=== PATIENT | male | born 1935 | race Caucasian/White ===

== ENCOUNTER 2019-05-02 20:40 | Inpatient (IN) ==
[2019-05-02] MEDS ORDERED: ONDANSETRON HCL/PF 2 MG/ML VIAL IV ONE (21:00)
[2019-05-02] MEDS ORDERED: MORPHINE SULFATE 2 MG/ML DISP.SYRIN IV ONE ×2 (21:51→22:32)
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
[2019-05-03] MEDS ORDERED: MORPHINE SULFATE 2 MG/ML DISP.SYRIN IV ONE ×2 (00:13→01:13)
[2019-05-03 00:24] LABS: Hematocrit 35.9 % (42.0-52.0); Hemoglobin 11.7 gm/dL (13.5-18.0); Mean Cell Volume 98.6 fl (78-100); Mean Corpuscular Hemoglobin 32.1 pg (27-31); Mean Corpuscular Hgb Conc 32.6 g/dl (32-36); Mean Platelet Volume 11.4 fl (8-11.3); Neutrophil # 8.7 K/mm3 (1.3-6.0); Neutrophil % 84.2 % (42-75.0); Platelet Count 145 K/mm3 (150-450); Red Blood Count 3.64 M/mm3 (4.7-6.0); Red Cell Distribution Width 14.8 % (11.5-14.0); White Blood Count 10.3 K/mm3 (4.0-10.5)
[2019-05-03 00:38] LABS: Albumin * 3.4 gm/dl (3.4-5.0); Anion Gap 15.9 mmol/L (6.8-13.8); BUN/Creatinine Ratio 31.4 (9.0-21.6); Bilirubin, Total 0.5 mg/dL (0.0-1.1); Calcium * 8.8 mg/dL (7.9-10.9); Carbon Dioxide 24.5 mmol/L (24-32.6); Potassium 5.4 mmol/L (3.4-4.6); Total Protein 7.5 gm/dL (6.2-8.2)
[2019-05-03] MEDS ORDERED: MORPHINE SULFATE 2 MG/ML DISP.SYRIN IV PRN (01:33)
[2019-05-03] MEDS ORDERED: ONDANSETRON HCL/PF 2 MG/ML VIAL IV PRN ×2 (01:37→12:50)
[2019-05-03] MEDS ORDERED: CYCLOBENZAPRINE HCL 10 MG TABLET PO ONE (03:42)
[2019-05-03] MEDS: MORPHINE SULFATE 4 MG/ML SYRG IV PRN ×3 (05:26→19:47)
[2019-05-03] MEDS ORDERED: ceFAZolin SODIUM 1 GM in DEXTROSE 5 % IN WATER 100 ML IV ONE ×4 (07:42→08:09)
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
[2019-05-03] MEDS ORDERED: FUROSEMIDE 10 MG/ML VIAL IV ONE (08:58)
[2019-05-03] MEDS ORDERED: NON-FORMULARY 1 DOSE DOSE (Omeprazole 20 MG) PO SCH (09:00)
[2019-05-03 09:08] LABS: Urine Bilirubin Negative (NEGATIVE); Urine Blood Negative /ul (NEGATIVE); Urine Ketone Negative (NEGATIVE); Urine Nitrite Negative (NEGATIVE); Urine Protein Negative (NEGATIVE); Urine Urobilinogen Normal (NORMAL)
[2019-05-03 09:15] LABS: Urine Amorphous Sediment Few - 1+ (NONE-FEW); Urine Appearance Slightly Cloudy (CLEAR); Urine Bacteria None Seen; Urine Color Yellow; Urine RBC None Seen /hpf (0-5); Urine WBC 0-5 /hpf (0-5)
[2019-05-03 09:23] LABS: Albumin * 3.4 gm/dl (3.4-5.0); Anion Gap 16.7 mmol/L (6.8-13.8); BUN/Creatinine Ratio 32.2 (9.0-21.6); Bilirubin, Total 0.5 mg/dL (0.0-1.1); Ca. Corrected For Albumin 9.3 mg/dL (8.4-10.2); Calcium * 9.1 mg/dL (7.9-10.9); Carbon Dioxide 22.7 mmol/L (24-32.6); Potassium 5.4 mmol/L (3.4-4.6); Total Protein 7.5 gm/dL (6.2-8.2)
[2019-05-03 09:27] LABS: Hematocrit 38.6 % (42.0-52.0); Hemoglobin 12.1 gm/dL (13.5-18.0); Mean Cell Volume 100.8 fl (78-100); Mean Corpuscular Hemoglobin 31.6 pg (27-31); Mean Corpuscular Hgb Conc 31.3 g/dl (32-36); Mean Platelet Volume 11.4 fl (8-11.3); Neutrophil # 6.5 K/mm3 (1.3-6.0); Neutrophil % 67.9 % (42-75.0); Platelet Count 157 K/mm3 (150-450); Red Blood Count 3.83 M/mm3 (4.7-6.0); Red Cell Distribution Width 15.1 % (11.5-14.0); White Blood Count 9.6 K/mm3 (4.0-10.5)
--- NOTE | 2019-05-03 09:43 | HP ---
Chief Complaint - Chief Complaint Date of Service: 05/03/19 Time of Service: 08:10 Chief Complaint: Fractured R. hip History of Present Illness: Sebastian Hall is an 83 yo wh. male who was in his usual state of health when he walked to his car and had a fall sustaining a R. hip fracture. He was brought to the hospital by EMS and evaluated in the ER. Xray showed a partially displaced spiral fracture of the femoral neck area. He is admitted for preparation of an ORIF of the R. hip to be done later this morning. PMHx is significant for CAD. He had a stent placed about 1 year ago and is on asa and Clopidrogel. On exam he has bilateral rales and the cxr shows Cardiomegally, increased pulmonary vascular congestion and fluid or scarring in the R. major fissure. 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 Lab shows normal wbc, hb 11.7 grams and K+ 5.4. EGFR is 51. Mr. Hall is medically stable and approved for his planned ORIF of the R. hip fracture. Medical History (Updated 05/03/19 @ 08:09 by LUIS Chino) CAD (coronary artery disease) CHF (congestive heart failure) Depression Diabetes Hyperlipidemia Hypertension 2017 Surgical History: Surgical History (Updated 05/02/19 @ 21:32 by Sera Magallanes RN) History of heart artery stent Family History: Family History (Updated 05/03/19 @ 02:21 by Katherine Healy RN) Other No pertinent family history Social History: Patient Lives/Resources Home Utilized Occupation Retired Preferred Language Congolese Do you have any jain or No cultural preference? Smoking Status Former smoker Have you smoked in the past 12 No months Alcohol Use none Drug Use none No Social History Section defined Review Of Systems (GEN) - Review of Systems Generalized/Overall Review: Present: Weakness - Pt. is hypersomnolent from pain meds and cyclobenzaprine and is unable to provide any medial history to me. His son is here and proveded the history. EENTM: Present: No Symptoms Reported Respiratory: Present: Cough, Shortness of Breath Cardiac: Present: Other - Hx. 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 Stented 1 yr. ago. Abdominal: Present: No Symptoms Reported Genitourinary: Present: Oliguria Musculoskeletal: Present: Joint Pain - R. hip pain. R. leg is shortened and internally rotated. Neurological: Present: No Symptoms Reported Skin: Present: No Symptoms Reported Endocrine: Present: No Symptoms Reported Misc: All systems neg except as marked Immunizations: IMMUNIZATION HX Immunizations Up to Date Yes History of Influenza Vaccine Yes Hx Pneumococcal Vaccination Yes Allergies/Adverse Reactions: Allergies Allergy/AdvReac Type Severity Reaction Status Date / Time No Known Allergies Allergy Verified 05/03/19 02:21 Home Medications: HOME MEDICATIONS Aspirin 81 mg PO DAILY 05/02/19 [Last Taken Unknown] Atorvastatin Calcium 20 mg PO DAILY 05/02/19 [Last Taken Unknown] Clopidogrel Bisulfate [Plavix] 75 mg PO DAILY 05/02/19 [Last Taken Unknown] Furosemide [Lasix] 40 mg PO DAILY 05/02/19 [Last Taken Unknown] Lisinopril [Prinivil] 10 mg PO DAILY 05/02/19 [Last Taken Unknown] Omeprazole [Prilosec] 20 mg PO DAILY 05/02/19 [Last Taken Unknown] Potassium Chloride [Klor-Con M10] 10 meq PO DAILY 05/02/19 [Last Taken Unknown] Sertraline HCl [Zoloft] 50 mg PO DAILY 05/02/19 [Last Taken Unknown] metFORMIN HCL [Metformin HCl] 500 mg PO BID 05/02/19 [Last Taken Unknown] Exam - Exam Vital Signs: Vital Signs - Last Taken Temp 36.8 C 05/03/19 01:52 Pulse 72 05/03/19 01:52 Resp 20 05/03/19 01:52 BP 119/62 05/03/19 01:52 Pulse Ox 93 05/03/19 01:52 Constitutional: Present: Somnolent ENT Exam: Present: normal ENT inspection, hearing grossly normal, pharynx normal, TMs normal Eye Exam: bilateral eye: normal inspection, PERRL, EOMI Neck: Present: non-tender, limited range of motion Back Exam: Present: normal inspection, no CVA tenderness, no vertebral tenderness Breasts: Present: Exam deferred Respiratory: Present: decreased breath sounds, rales, rhonchi, other - Having apneic episodes lasting ~ 30 seconds. Cardiovascular/Chest: Present: normal peripheral pulses, regular rate, rhythm, no chest tenderness, no edema, no gallop, no murmur, JVD, extra beats Peripheral Pulses: carotid (R): 2+, carotid (L): 2+, radial (R): 2+, radial (L): 2+ Abdomen: Present: Normal bowel sounds, soft, nontender, nondistended, no rebound tenderness, no hepatospenomegaly, no masses /Rectal: Present: External genitalia normal, Other - difficulty getting in a doe catheter. Extremity: Present: normal range of motion, non-tender, normal inspection, no pedal edema, no calf tenderness Skin Exam: Present: normal color, warm/dry, no cyanosis Lymphatic: Present: no adenopathy Neurologic: Present: alberene stone setter II-XII nml as tested Appearance: Present: appropriate appearance, neat Eye contact: Present: other - sleeping. Thoughts: Present: normal thought pattern - per his son., no apparent hallucination Diagnostic Studies: Abnormal Lab Results 05/03/19 05/03/19 Range/Units 00:20 00:20 RBC 3.64 L (4.7-6.0) M/mm3 Hgb 11.7 L (13.5-18.0) gm/dL Hct 35.9 L (42.0-52.0) % MCH 32.1 H (27-31) pg RDW 14.8 H (11.5-14.0) % Plt Count 145 L (150-450) K/mm3 MPV 11.4 H (8-11.3) fl Immature Gran # (Auto) 0.04 H (0.000-0.0310) K/mm3 Neutrophils % 84.2 H (42-75.0) % Lymphocytes % 7.8 L (20-51) % Neutrophils # 8.7 H (1.3-6.0) K/mm3 Lymphocytes # 0.80 L (1.5-3.5) k/mm3 Potassium 5.4 H (3.4-4.6) mmol/L Anion Gap 15.9 H (6.8-13.8) mmol/L BUN 44 H (6-23) mg/dL Est GFR (Non-Af Amer) 51 L (60-130) mL/min BUN/Creatinine Ratio 31.4 H (9.0-21.6) Random Glucose 144 H (70-110) mg/dL Laboratory Results WBC 10.3 K/mm3 (4.0-10.5) 06/12/19 00:20 RBC 3.64 M/mm3 (4.7-6.0) L 05/03/19 00:20 Hgb 11.7 gm/dL (13.5-18.0) L 05/03/19 00:20 Hct 35.9 % (42.0-52.0) L 05/03/19 00:20 MCV 98.6 fl (78-100) 05/03/19 00:20 MCH 32.1 pg (27-31) H 05/03/19 00:20 MCHC 32.6 g/dl (32-36) 05/03/19 00:20 RDW 14.8 % (11.5-14.0) H 05/03/19 00:20 Plt Count 145 K/mm3 (150-450) L 05/03/19 00:20 MPV 11.4 fl (8-11.3) H 05/03/19 00:20 Immature Gran % (Auto) 0.40 % (0.001-0.429) 05/03/19 00:20 Immature Gran # (Auto) 0.04 K/mm3 (0.000-0.0310) H 05/03/19 00:20 84.2 % (42-75.0) H 05/03/19 00:20 7.8 % (20-51) L 05/03/19 00:20 6.6 % (0.0-9) 05/03/19 00:20 0.7 % (0.0-3.0) 05/03/19 00:20 0.3 % (0.0-1.0) 05/03/19 00:20 Nucleated RBC % 0.0 k/mm3 (0-1) 05/03/19 00:20 8.7 K/mm3 (1.3-6.0) H 05/03/19 00:20 0.80 k/mm3 (1.5-3.5) L 05/03/19 00:20 0.7 k/mm3 (0.0-1.0) 05/03/19 00:20 0.1 k/mm3 (0.0-0.7) 05/03/19 00:20 Absolute Basophils 0.0 k/mm3 (0.0-0.1) 05/03/19 00:20 Sodium 140 mmol/L (132-142) 05/03/19 00:20 141 mmol/L (130-142) 05/03/19 00:20 Potassium 5.4 mmol/L (3.4-4.6) H 05/03/19 00:20 Chloride 105 mmol/L (97-106) 05/03/19 00:20 Carbon Dioxide 24.5 mmol/L (24-32.6) 05/03/19 00:20 15.9 mmol/L (6.8-13.8) H 05/03/19 00:20 BUN 44 mg/dL (6-23) H 05/03/19 00:20 1.40 mg/dL (0.4-1.4) 05/03/19 00:20 Est GFR (Non-Af Amer) 51 mL/min (60-130) L 05/03/19 00:20 31.4 (9.0-21.6) H 05/03/19 00:20 144 mg/dL (70-110) H 05/03/19 00:20 Calcium 8.8 mg/dL (7.9-10.9) 05/03/19 00:20 Calcium Adj for Albumin 9.0 mg/dL (8.4-10.2) 05/03/19 00:20 0.5 mg/dL (0.0-1.1) 05/03/19 00:20 AST 26 U/L (0-48) 05/03/19 00:20 ALT 26 U/L (19-67) 05/03/19 00:20 100 U/L (50-170) 05/03/19 00:20 7.5 gm/dL (6.2-8.2) 05/03/19 00:20 3.4 gm/dl (3.4-5.0) 05/03/19 00:20 Assessment/Plan - Narrative Narrative: 1. diurese 2. place doe catheter 3. decrease his pain med and hold until the apnea stops. 4. Proceed with ORIF of the R. Hip 5. continuous cardiac monitoring - Assessment/Plan (1) Displaced fracture of right femoral neck Problem: Acute (2) Mild congestive heart failure Problem: Acute (3) Coronary artery disease Problem: Acute Qualifiers: Coronary Disease-Associated Artery/Lesion type: [place] artery [place] vs. transplanted heart: [place] heart Associated angina: without angina Qualified Code(s): I25.10 - Atherosclerotic heart disease of [place] coronary artery without angina pectoris
--- NOTE | 2019-05-03 10:53 | ANES ---
Anesthesia Pre Procedure Eval Vitals/Labs: Last Vital Signs Temp 36.8 C 05/03/19 01:52 Pulse 78 05/03/19 09:27 Resp 9 L 05/03/19 09:27 BP 126/61 05/03/19 09:27 Pulse Ox 95 05/03/19 09:48 HOME MEDICATIONS Aspirin 81 mg PO DAILY 05/02/19 [Last Taken Unknown] Atorvastatin Calcium 20 mg PO DAILY 05/02/19 [Last Taken Unknown] Clopidogrel Bisulfate [Plavix] 75 mg PO DAILY 05/02/19 [Last Taken Unknown] Furosemide [Lasix] 40 mg PO DAILY 05/02/19 [Last Taken Unknown] Lisinopril [Prinivil] 10 mg PO DAILY 05/02/19 [Last Taken Unknown] Omeprazole [Prilosec] 20 mg PO DAILY 05/02/19 [Last Taken Unknown] Potassium Chloride [Klor-Con M10] 10 meq PO DAILY 05/02/19 [Last Taken Unknown] Sertraline HCl [Zoloft] 50 mg PO DAILY 05/02/19 [Last Taken Unknown] metFORMIN HCL [Metformin HCl] 500 mg PO BID 05/02/19 [Last Taken Unknown] Allergies/Adverse Reactions: Allergies Allergy/AdvReac Type Severity Reaction Status Date / Time No Known Allergies Allergy Verified 05/03/19 02:21 - Planned Procedure Planned Procedure: HIP FRACTURE Medication List Reviewed:: Yes Allergies Verified: Yes Medical History (Updated 05/03/19 @ 09:43 by Phong Vergara DO) CAD (coronary artery disease) CHF (congestive heart failure) Depression Diabetes Hyperlipidemia Hypertension 2018 Surgical History (Updated 05/02/19 @ 21:32 by Sera Magallanes RN) History of heart artery stent Family History (Updated 05/03/19 @ 02:21 by Katherine Healy RN) Other No pertinent family history - Family Anesthesia History Family History:: no untoward family reactions to anesthesia, no familial bleeding tendencies, no family history of clotting disorders, no family history of premature - Airway/Neck/Teeth Teeth Condition: none Denture Type: Full upper, Full lower Neck Exam: full range of motion Mallampatti Score: 2 Thyromental (T-M) distance: > 6 cm Mandibulo Hyoid distance: > 3 cm - Respiratory Respiratory Physical: rhonchi, wheezing Smoking Status: Former smoker Sleep Apnea currently treated: No Sleep Apnea by current assessment: No - Cardiovascular Cardiac History: ME, arrhythmia, CHF - currently active, recent furosemide, cardiomyopathy, hypertension, hyperlipidemia Tolerate Activity: Poor Heart Sounds: S1 & S2, Regular, Murmur - Anesthesia Assessment and Plan ASA Class: PS, IV Anesthesia Type Plan: General LMA - Will suspend DNR during surgery
[2019-05-03] MEDS ORDERED: ceFAZolin SODIUM 1 GM VIAL IV ONE (11:30)
[2019-05-03] MEDS: NORMAL SALINE 1,000 ML IV PRN ×2 (11:30→16:46)
[2019-05-03] MEDS ORDERED: ZOLPIDEM TARTRATE 5 MG TABLET PO PRN (12:50)
[2019-05-03] MEDS ORDERED: MAGNESIUM HYDROXIDE 30 ML UDC PO PRN (12:50)
[2019-05-03] MEDS ORDERED: MAG HYDROX/ALUMINUM HYD/SIMETH 30 ML UDC PO PRN (12:50)
[2019-05-03] MEDS ORDERED: diphenhydrAMINE HCL 50 MG/ML VIAL IV PRN (12:50)
--- NOTE | 2019-05-03 12:53 | OR ---
Operative Report - Dictated Report Narrative: Date: 05/03/2019 Preoperative diagnosis: Closed right hip displaced femoral neck fracture. Postoperative diagnosis: Closed right hip displaced femoral neck fracture Procedure: Right hip cemented rosa-arthroplasty. Surgeon: Francisco Mullen M.D. Scale Attendant: Yossi Lebron PA-C (provided essential set of skilled, educated hands that assisted with transfer, positioning, prepping, draping, retraction, manipulation, placement of implants, irrigation, closure wounds, and application of dressings all of which could not be performed by the available surgical crew) Anesthesia: Spinal. Complications: None Specimens: Bone Estimated blood loss: 150 milliliters. Retained implants: Depuy [place] size 2 basic cemented femoral stem. Size 47 millimeter outside diameter self-centering bipolar head with +1.5 millimeter cobalt chromium 28 mm femoral head. Indications: Mr. Hall is a 83-year-old gentleman who fell getting into his car. This patient was evaluated on the floor and found to have sustained a displaced femoral neck fracture. The risks and benefits were discussed with the patient as well as any power of deputy county attorney or family . The patient wished to proceed with surgical treatment. The risks, benefits, and alternatives discussed were , blood clots, bleeding, infection, nerve/tendon blood vessel/ injury, malposition of components, dislocation and/or instability of joint, intraoperative fracture, postoperative limited range of motion, persistent pain, failure of components, and need for additional procedures. Patient wished to proceed. Consent was obtained after answering all questions. Procedure: After marking the correct extremity on the floor, the patient was taken to the operating room. A timeout was performed. IV antibiotics consisting of Ancef were administered prior to the procedure. A spinal anesthetic was induced by anesthesia. A Egan catheter was inserted if not are in place. The patient was then transitioned to a lateral position on a well- padded pegboard. An axillary roll was placed. The head was in neutral position. The non-operative down leg was well-padded with SCD and OPAL hose in place. The arms were supported and padded to protect from any undue pressure on the bony prominences and nerves. Well-padded anterior and posterior pelvic and chest posts were secured in order to maintain a stable position of the pelvis. This was placed so that the pelvis was perpendicular to the floor. The body was in line with the pelvis. Once it was felt that we had protected all the bony prominences and the patient was well secured with a safety belt as well, the leg was pre-scrubbed with alcohol, prepped and draped in a standard sterile fashion. A standard anterior lateral hip incision was marked out over the greater trochanter. [place] drapes were then placed. The skin incision was then made. Sharp dissection with a scalpel utilizing cautery for hemostasis was carried out down to the gluteus and iliotibial band fascia. This was split in line with the skin incision. The greater trochanter bursa was excised. The anterior and posterior margins of the abductor tendon were identified. The anterior 1/2-1/3 of the tendon was tagged and reflected off the greater trochanter leaving a sleeve of tendon for repair at the completion of the case. This exposed the underlying hip joint capsule. An inverted T-type capsulotomy was made extending this up to the brim of the acetabulum. We encountered a hematoma at this point confirming an acute fracture as well as noted displacement of the femoral neck fracture. Using Homans to assist with elevation of the soft tissues off the anterior, superior, and inferior aspects of the femoral neck, the hip was then placed in a figure 4 position for a femoral neck cleanup cut to be made. With the leg in an externally rotated and adducted position, the cutting flag was utilized in order to anthony for a standard femoral neck cut approximately a fingerbreadth above the level of the lesser trochanter. This was done while protecting the surrounding soft tissues with Homans. The femoral head was then removed and sized for guidance on the size of the bipolar head. It was noted that there was no significant loss of articular cartilage on both the femoral head and weightbearing portions of the acetabulum. We then returned the leg to the table and turned our attention to the acetabulum. While protecting the surrounding soft tissues, the labrum and remaining tissue in the fovea were excised using a scalpel and cautery. The acetabulum was then protected with a sponge while we returned our attention to the femur. With the leg in a figure 4 position utilizing Homans for soft tissue protection, a box cutting osteotome, followed by Charalberey awl, followed by serial broaches were utilized in order to prepare the femur. It was found that a size 2 broach gave good axial and rotational stability. The proximal femur was visualized to ensure that there were no signs of fracture. A series of heads were trialed. It was found that a + 1.5 mm femoral head gave good overall stability. There is minimal longitudinal instability. Hip range of motion was able to reach full extension and external rotation to greater than 75 degrees prior to impingement along the posterior acetabulum. The hip was able to be flexed to greater than 90 degrees with internal rotation greater than 60 degrees prior to anterior impingement. The limb lengths were near equal based on comparison to the contralateral side . At this point was felt this was the appropriately sized femoral components as well as neck and femoral head. The trial implants were removed. A canal cement plug was placed distally and the canal was thoroughly irrigated using pulsatile vacuum brush device. The canal was then thoroughly dried with a suction device. The cement was vacuum mixed per the flake miller helper's instructions and placed into a cement gun. Cement was then placed in the dry irrigated femur using modern cementing technique using a pressurizing device. The stem was then placed in the appropriate version compared to her [place] anatomy and held in place while the cement cured and the extruded cement was removed. Once the cement was fully cured, we ensured that the stem was stable and that there were no signs of fracture. The remaining extruded cement was removed, and the joint and the capsule were thoroughly evaluated to ensure there are no cement fragments. The final femoral bipolar head was then impacted in the place. The hip was then reduced and seated completely. The capsule was repaired with a single interrupted #1 Vicryl. The abductor tendon was repaired to the greater trochanter utilizing #5 Ethibond through drill holes. This was oversewn with #1 Vicryl. The fascia was closed with strata fix suture. The wounds were thoroughly irrigated as we closed in layers. The deep and subcutaneous fat layers were closed with 0 Vicryl. The subcutaneous tissue was closed with a running 3-0 Vicryl and the skin with sofia. All sponge, needle, blade, and instrument counts were correct prior to closing the wounds. Sterile dressings consisting of Xeroform, 4 x 4's, ABD, and tape were applied. The patient was awoken and transferred to her hospital bed and then to the postanesthesia care unit in stable condition. Postoperative condition: The plan is to return to the medical/surgical inpatient floor postoperatively. Postoperatively 24 hours of IV antibiotics, pain control, physical therapy, occupational therapy, and medical comanagement will be utilized. Patient will be weightbearing as tolerated with anterior hip precautions. Postoperative films will be obtained in the recovery room.
--- NOTE | 2019-05-03 14:32 | ANES ---
Post Anesthesia Discharge - Transfer of Care Transfer of Care handoff given to nurse: Yes - Discharge from PACU Discharge from PACU when meets criteria: Yes - Comfortable and sleepy on
[2019-05-03] MEDS: ceFAZolin SODIUM 1 GM in DEXTROSE 5 % IN WATER 50 ML IV SCH ×4 (14:44→21:20)
--- NOTE | 2019-05-03 15:33 | ANES ---
Post Anesthesia Assessment - Vital Signs Vitals: Last Vital Signs Temp 36.7 C 05/03/19 14:18 Pulse 72 05/03/19 15:03 Resp 16 05/03/19 14:33 BP 126/55 05/03/19 15:03 Pulse Ox 97 05/03/19 15:03 Airway Patency: Normal - Mental Status Level Of Consciousness: Awake, Alert, Appropriate - Pain Level Pain Score: 0 - N/V Assessment Nausea/Vomiting Presence: None Dehydration:: No
[2019-05-03] MEDS: LISINOPRIL 10 MG TABLET PO SCH (16:34)
[2019-05-03] MEDS: ASPIRIN 81 MG TAB.CHEW PO SCH (17:06)
[2019-05-03] MEDS: oxyCODONE HCL/ACETAMINOPHEN 1 TAB TABLET PO PRN ×2 (17:06→19:24)
[2019-05-03] MEDS: SERTRALINE HCL 50 MG TABLET PO SCH (17:06)
[2019-05-03] MEDS: POTASSIUM CHLORIDE 10 MEQ TABLET.SA PO SCH (17:07)
[2019-05-03] MEDS: SENNOSIDES/DOCUSATE SODIUM 1 TAB TABLET PO SCH (21:20)
[2019-05-03] MEDS: ROSUVASTATIN CALCIUM 10 MG TABLET PO SCH (21:20)
[2019-05-03] MEDS ORDERED: AMITRIPTYLINE HCL 10 MG TABLET PO ONE (21:44)
[2019-05-04] MEDS: NORMAL SALINE 1,000 ML IV PRN (01:25)
[2019-05-04] MEDS: oxyCODONE HCL/ACETAMINOPHEN 1 TAB TABLET PO PRN ×5 (02:57→20:43)
[2019-05-04] MEDS: ceFAZolin SODIUM 1 GM in DEXTROSE 5 % IN WATER 50 ML IV SCH ×2 (03:11)
[2019-05-04 06:01] LABS: Mean Cell Volume 100.6 fl (78-100); Mean Corpuscular Hemoglobin 31.4 pg (27-31); Mean Corpuscular Hgb Conc 31.3 g/dl (32-36); Mean Platelet Volume 11.4 fl (8-11.3); Platelet Count 103 K/mm3 (150-450); Red Blood Count 3.18 M/mm3 (4.7-6.0); Red Cell Distribution Width 14.7 % (11.5-14.0)
[2019-05-04 06:16] LABS: Anion Gap 14.8 mmol/L (6.8-13.8); BUN/Creatinine Ratio 31.4 (9.0-21.6); Calcium * 8.2 mg/dL (7.9-10.9); Carbon Dioxide 21.4 mmol/L (24-32.6); Estimated Creat Clear 36.9; Potassium 4.2 mmol/L (3.4-4.6)
[2019-05-04] MEDS: LISINOPRIL 10 MG TABLET PO SCH (09:17)
[2019-05-04] MEDS: SERTRALINE HCL 50 MG TABLET PO SCH (09:18)
[2019-05-04] MEDS: POTASSIUM CHLORIDE 10 MEQ TABLET.SA PO SCH (09:18)
[2019-05-04] MEDS: ASPIRIN 81 MG TAB.CHEW PO SCH (09:22)
--- NOTE | 2019-05-04 11:08 | PN ---
Subjective - Date and Time Seen Date: 05/04/19 Time: 09:30 Subjective Narrative: Postop day #1: Sebastian Hall was taken to the OR yesterday and had a right hip prosthesis placed. He tolerated procedure well. He has had some pain management issues postoperatively. I saw him last night about 9:30 PM and he was fidgety and a bit anxious. Because of the apneic episodes he had had yesterday morning with the morphine I declined to give him a benzodiazepine to help him with his nervousness. I did give him amitriptyline 10 mg but I do not know the results of that. Lab work shows hemoglobin dropped 2.1 g down to 10g this morning. The kidney function is actually improved some with an EGFR rising from 48-52. Potassium was elevated on admission at 5.4 but is normal today at 4.2. He is alert and conversant. He is hard of hearing. Case management and Mr. Hall son have discussed residential with him and placement is still pending. He is sitting up in a chair today. He will continue with physical therapy while here and then will be going to residential on Wednesday for a few weeks to rehab. Medically he seems stable. Objective - Review of Systems Generalized/Overall Review: Reports: Weakness EENTM: Reports: No Symptoms Reported Respiratory: Reports: No Symptoms Reported Cardiac: Reports: No Symptoms Reported Abdominal: Reports: No Symptoms Reported Genitourinary Symptoms: Reports: No Symptoms Reported Musculoskeletal Complaints: Reports: Joint Pain - Status post right hip prosthesis placement day #1 Neurological: Reports: No Symptoms Reported Skin: Reports: No Symptoms Reported Endocrine: Reports: No Symptoms Reported - Vitals Vitals: Last Vital Signs Temp 37.0 C 05/04/19 10:00 Pulse 63 05/04/19 10:00 Resp 18 05/04/19 10:00 BP 98/48 05/04/19 10:00 Pulse Ox 96 05/04/19 10:00 - Abnormal Lab Findings Abnormal Lab Findings: Abnormal Lab Results 05/04/19 05/04/19 Range/Units 05:56 05:56 RBC 3.18 L (4.7-6.0) M/mm3 Hgb 10.0 L (13.5-18.0) gm/dL Hct 32.0 L (42.0-52.0) % MCV 100.6 H (78-100) fl MCH 31.4 H (27-31) pg MCHC 31.3 L (32-36) g/dl RDW 14.7 H (11.5-14.0) % Plt Count 103 L (150-450) K/mm3 MPV 11.4 H (8-11.3) fl Carbon Dioxide 21.4 L (24-32.6) mmol/L Anion Gap 14.8 H (6.8-13.8) mmol/L BUN 43 H (6-23) mg/dL Est GFR (Non-Af Amer) 52 L (60-130) mL/min BUN/Creatinine Ratio 31.4 H (9.0-21.6) Random Glucose 160 H (70-110) mg/dL - EKG/Xray Findings EKG: NSR EKG read: Interp. by me XRAY: chest Interpretation: Reviewed by me - Exam Constitutional: Present: Alert, Oriented x3, Cooperative, Well developed, Well nourished, No distress ENT Exam: Present: normal ENT inspection, hearing grossly normal, pharynx normal, TMs normal Neck: Present: non-tender, limited range of motion Breasts: Present: Exam deferred Respiratory: Present: chest non-tender, lungs clear, normal breath sounds, no respiratory distress, no accessory muscle use Cardiovascular/Chest: Present: normal peripheral pulses, regular rate, rhythm, no chest tenderness, no edema, no gallop, no JVD, no murmur, no rub Abdomen: Present: Normal bowel sounds, soft, nontender, nondistended, no rebound tenderness, no hepatospenomegaly, no masses /Rectal: Present: External genitalia normal Extremity: Present: normal range of motion, non-tender, normal inspection, no pedal edema, no calf tenderness Skin Exam: Present: normal color, warm/dry, no cyanosis Lymphatic: Present: no adenopathy 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 Appearance: Present: appropriate appearance Eye contact: Present: cooperative, good eye contact Thoughts: Present: normal thought pattern, no apparent hallucination Cauti Physician Documentation - Urinary Catheter Management Urethral (Egan) Urethral Indwelling: No Date of Insertion: 05/03/19 Time of Insertion: 08:35 Date of Removal: 05/04/19 Time of Removal: 07:35 Assessment/Plan Plan Narrative: Continue physical therapy as directed by orthopedics Repeat morning lab Check serum B12 and folic acid levels since the MCV is greater than 100 - Problems/Diagnosis (1) Displaced fracture of right femoral neck Problem: Acute Narrative: Status post ORIF right hip with placement of a prosthesis (2) Mild congestive heart failure Problem: Acute (3) Coronary artery disease Problem: Acute Qualifiers: Coronary Disease-Associated Artery/Lesion type: [place] artery [place] vs. transplanted heart: [place] heart Associated angina: without angina Qualified Code(s): I25.10 - Atherosclerotic heart disease of [place] coronary artery without angina pectoris (4) Macrocytosis Problem: Chronic (5) Postoperative anemia due to acute blood loss Problem: Acute
[2019-05-04] MEDS: ENOXAPARIN SODIUM 40 MG/0.4 ML SYRG SC SCH (12:12)
--- NOTE | 2019-05-04 16:31 | PN ---
Subjective - Date and Time Seen Date: 05/04/19 Time: 08:00 Subjective Narrative: Subjective: Sitting in a chair this morning eating breakfast. Reports minimal pain. Was able to get up in the room with therapy. Pain is well-controlled. Voiding without any complications. Tolerating by mouth intake. Denies any nausea or vomiting. Denies calf pain. Slept well. Physical exam: Alert and oriented to person, place and time Right lower Extremity: Palpable dorsalis pedis pulse. Sensation grossly intact to light touch. Dressings clean and dry. Able to flex and extend ankle and toes. No excessive drainage. Calf and thigh are soft and nontender. Assessment: Postop day 1 status post right hip rosa-arthroplasty. Plan: Continue with physical and occupational therapy weightbearing as tolerated. Anterior hip precautions. Continue with anticoagulation -he will need 10 days of Lovenox followed by a regular strength aspirin daily. 24 hours postoperative prophylactic antibiotics. Pain control with goal to rely on oral medications. Continue bowel regimen. Will need 6 weeks with walker or assitive device to protect joint while ambulating during the recovery process. He is okay to transfer to a nursing facility if this is necessary at any point. He is to keep his wound clean and dry. Cover with dry gauze and tape. Change this every 2-3 days as needed. He'll follow up in approximately 2-3 weeks with orthopedics. Use OPAL hose on the operative side. Objective - Vitals Vitals: Last Vital Signs Temp 37.0 C 05/04/19 15:05 Pulse 69 05/04/19 15:05 Resp 18 05/04/19 15:05 BP 100/55 05/04/19 15:05 Pulse Ox 100 05/04/19 15:05 - Abnormal Lab Findings Abnormal Lab Findings: Abnormal Lab Results 05/04/19 05/04/19 Range/Units 05:56 05:56 RBC 3.18 L (4.7-6.0) M/mm3 Hgb 10.0 L (13.5-18.0) gm/dL Hct 32.0 L (42.0-52.0) % MCV 100.6 H (78-100) fl MCH 31.4 H (27-31) pg MCHC 31.3 L (32-36) g/dl RDW 14.7 H (11.5-14.0) % Plt Count 103 L (150-450) K/mm3 MPV 11.4 H (8-11.3) fl Carbon Dioxide 21.4 L (24-32.6) mmol/L Anion Gap 14.8 H (6.8-13.8) mmol/L BUN 43 H (6-23) mg/dL Est GFR (Non-Af Amer) 52 L (60-130) mL/min BUN/Creatinine Ratio 31.4 H (9.0-21.6) Random Glucose 160 H (70-110) mg/dL Cauti Physician Documentation - Urinary Catheter Management Urethral (Egan) Urethral Indwelling: No Date of Insertion: 05/03/19 Time of Insertion: 08:35 Date of Removal: 05/04/19 Time of Removal: 07:35 Assessment/Plan - Problems/Diagnosis (1) Displaced fracture of right femoral neck Problem: Acute
[2019-05-04] MEDS: TAMSULOSIN HCL 0.4 MG CAP.SR.24H PO SCH (18:36)
[2019-05-04] MEDS: ROSUVASTATIN CALCIUM 10 MG TABLET PO SCH (20:43)
[2019-05-04] MEDS: SENNOSIDES/DOCUSATE SODIUM 1 TAB TABLET PO SCH (20:43)
[2019-05-05] MEDS: oxyCODONE HCL/ACETAMINOPHEN 1 TAB TABLET PO PRN ×4 (02:53→17:33)
[2019-05-05 05:27] LABS: Hematocrit 31.4 % (42.0-52.0); Hemoglobin 10.1 gm/dL (13.5-18.0); Mean Cell Volume 99.4 fl (78-100); Mean Corpuscular Hgb Conc 32.2 g/dl (32-36); Mean Platelet Volume 11.4 fl (8-11.3); Neutrophil % 78.5 % (42-75.0); Platelet Count 101 K/mm3 (150-450); Red Blood Count 3.16 M/mm3 (4.7-6.0); Red Cell Distribution Width 14.4 % (11.5-14.0)
[2019-05-05 06:02] LABS: Albumin * 2.8 gm/dl (3.4-5.0); Anion Gap 13.1 mmol/L (6.8-13.8); BUN/Creatinine Ratio 39.7 (9.0-21.6); Bilirubin, Total 0.7 mg/dL (0.0-1.1); Ca. Corrected For Albumin 9.5 mg/dL (8.4-10.2); Calcium * 8.9 mg/dL (7.9-10.9); Carbon Dioxide 23.2 mmol/L (24-32.6); Folate 7.1 ng/mL (8.6-58.9); Potassium 4.3 mmol/L (3.4-4.6); Total Protein 6.6 gm/dL (6.2-8.2)
[2019-05-05] MEDS: ASPIRIN 81 MG TAB.CHEW PO SCH (09:05)
[2019-05-05] MEDS: POTASSIUM CHLORIDE 10 MEQ TABLET.SA PO SCH (09:06)
[2019-05-05] MEDS: LISINOPRIL 10 MG TABLET PO SCH (09:07)
[2019-05-05] MEDS: SERTRALINE HCL 50 MG TABLET PO SCH (09:07)
[2019-05-05] MEDS ORDERED: RINGER'S SOLUTION,LACTATED 1,000 ML IV PRN (10:37)
--- NOTE | 2019-05-05 10:37 | PN ---
Subjective - Date and Time Seen Date: 05/05/19 Time: 09:15 Subjective Narrative: Mr. Hall had a restful night last night and I believe the Benadryl did help. He is also continued to get his narcotics. He is sleeping this morning on rounds. His daughter is here sitting with him. His blood pressures slightly low at 92/70 this morning and is about what it has been through the night. Therefore I am holding the enalapril until his blood pressure recovers. Blood pressure is down because of being volume contracted from blood loss, and from narcotic pain medication. His hemoglobin has stabilized and is 10.1 g this morning up from 10 g yesterday. He has been up and has walked a few steps in the room. Physical therapy will continue to progress his walking distance. Dr. Bojorquez will assume his care at noon. Case management is still working on fpc placement for tomorrow. Objective - Review of Systems Generalized/Overall Review: Reports: Weakness EENTM: Reports: No Symptoms Reported Respiratory: Reports: No Symptoms Reported Cardiac: Reports: No Symptoms Reported Abdominal: Reports: No Symptoms Reported Genitourinary Symptoms: Reports: No Symptoms Reported Musculoskeletal Complaints: Reports: Joint Pain - Right hip Neurological: Reports: No Symptoms Reported Skin: Reports: No Symptoms Reported Endocrine: Reports: No Symptoms Reported Misc: All systems neg except as marked - Vitals Vitals: Last Vital Signs Temp 37.0 C 05/05/19 06:36 Pulse 73 05/05/19 09:07 Resp 18 05/05/19 06:36 BP 92/43 05/05/19 09:07 Pulse Ox 94 05/05/19 06:36 - Abnormal Lab Findings Abnormal Lab Findings: Abnormal Lab Results 05/05/19 05/05/19 Range/Units 05:20 05:20 RBC 3.16 L (4.7-6.0) M/mm3 Hgb 10.1 L (13.5-18.0) gm/dL Hct 31.4 L (42.0-52.0) % MCH 32.0 H (27-31) pg RDW 14.4 H (11.5-14.0) % Plt Count 101 L (150-450) K/mm3 MPV 11.4 H (8-11.3) fl Neutrophils % 78.5 H (42-75.0) % Lymphocytes % 9.2 L (20-51) % Monocytes % 10.9 H (0.0-9) % Neutrophils # 7.0 H (1.3-6.0) K/mm3 Lymphocytes # 0.83 L (1.5-3.5) k/mm3 Carbon Dioxide 23.2 L (24-32.6) mmol/L BUN 56 H (6-23) mg/dL Creatinine 1.41 H (0.4-1.4) mg/dL Est GFR (Non-Af Amer) 51 L (60-130) mL/min BUN/Creatinine Ratio 39.7 H (9.0-21.6) Random Glucose 145 H (70-110) mg/dL ALT 17 L (19-67) U/L Albumin 2.8 L (3.4-5.0) gm/dl Folate 7.1 L (8.6-58.9) ng/mL - Exam Constitutional: Present: Somnolent ENT Exam: Present: normal ENT inspection, pharynx normal, hard of hearing Neck: Present: non-tender, limited range of motion Breasts: Present: Exam deferred Respiratory: Present: chest non-tender, lungs clear, normal breath sounds, no respiratory distress, no accessory muscle use Cardiovascular/Chest: Present: normal peripheral pulses, regular rate, rhythm, no chest tenderness, no edema, no gallop, no JVD, no murmur, no rub Abdomen: Present: Normal bowel sounds, soft, nontender, nondistended, no rebound tenderness, no hepatospenomegaly, no masses /Rectal: Present: Exam deferred Extremity: Present: normal range of motion - Except the right hip, non-tender - Except the right hip, normal inspection, no pedal edema, no calf tenderness, normal capillary refill Skin Exam: Present: normal color, warm/dry, no cyanosis Lymphatic: Present: no adenopathy 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 Bolus 1 L of lactated Ringer's this morning 2. Continue to monitor bladder with a bladder scan. Last night he had a sense of needing to void and could not. He was straight catheter 125 cc of urine is all that was returned. Subsequent bladder scans have shown the bladder to be basically empty. 3. Repeat CBC and CMP tomorrow morning 4. Check urinalysis 5. Transfer care to Dr. Bojorquez at noon today. 6. Case management is still working on fpc placement for him for tomorrow. - Problems/Diagnosis (1) Displaced fracture of right femoral neck Problem: Acute (2) Mild congestive heart failure Problem: Acute (3) Coronary artery disease Problem: Acute Qualifiers: Coronary Disease-Associated Artery/Lesion type: [place] artery [place] vs. transplanted heart: [place] heart Associated angina: without angina Qualified Code(s): I25.10 - Atherosclerotic heart disease of [place] coronary artery without angina pectoris (4) Macrocytosis Problem: Chronic (5) Postoperative anemia due to acute blood loss Problem: Acute
[2019-05-05] MEDS: ENOXAPARIN SODIUM 40 MG/0.4 ML SYRG SC SCH (11:23)
[2019-05-05] MEDS ORDERED: NORMAL SALINE 1,000 ML IV ONE (14:44)
[2019-05-05] MEDS: ACETAMINOPHEN 500 MG TABLET PO PRN ×2 (17:39→23:58)
[2019-05-05] MEDS: TAMSULOSIN HCL 0.4 MG CAP.SR.24H PO SCH (18:22)
[2019-05-05] MEDS: ROSUVASTATIN CALCIUM 10 MG TABLET PO SCH (20:19)
[2019-05-05] MEDS: SENNOSIDES/DOCUSATE SODIUM 1 TAB TABLET PO SCH (20:19)
[2019-05-06] MEDS: oxyCODONE HCL/ACETAMINOPHEN 1 TAB TABLET PO PRN (04:58)
[2019-05-06] MEDS: ASPIRIN 81 MG TAB.CHEW PO SCH (08:26)
[2019-05-06] MEDS: SERTRALINE HCL 50 MG TABLET PO SCH (08:27)
[2019-05-06] MEDS: POTASSIUM CHLORIDE 10 MEQ TABLET.SA PO SCH (08:27)
[2019-05-06] MEDS: ENOXAPARIN SODIUM 40 MG/0.4 ML SYRG SC SCH (12:59)
[2019-05-06] MEDS: ACETAMINOPHEN 500 MG TABLET PO PRN ×2 (15:08→21:15)
[2019-05-06] MEDS: TAMSULOSIN HCL 0.4 MG CAP.SR.24H PO SCH (17:04)
[2019-05-06] MEDS: ROSUVASTATIN CALCIUM 10 MG TABLET PO SCH (21:15)
[2019-05-06] MEDS: SENNOSIDES/DOCUSATE SODIUM 1 TAB TABLET PO SCH (21:15)
--- NOTE | 2019-05-06 23:19 | PN ---
Subjective - Date and Time Seen Date: 05/06/19 Time: 09:00 Subjective Narrative: Sebastian reports doing well. He has not urinated today. He has had some confusion. No bowel movement since surgery. Objective - Vitals Vitals: Last Vital Signs Temp 36.6 C 05/06/19 23:00 Pulse 84 05/06/19 23:00 Resp 18 05/06/19 23:00 BP 105/49 05/06/19 23:00 Pulse Ox 92 L 05/06/19 23:00 - Exam Constitutional: Present: Alert, Oriented x3, Cooperative ENT Exam: Present: hearing grossly normal Respiratory: Present: lungs clear, normal breath sounds Cardiovascular/Chest: Present: regular rate, rhythm, no murmur Abdomen: Present: Normal bowel sounds, soft, nontender, nondistended Skin Exam: Present: normal color, warm/dry, no cyanosis Cauti Physician Documentation - Urinary Catheter Management Urethral (Egan) Urethral Indwelling: No Date of Insertion: 05/03/19 Time of Insertion: 08:35 Date of Removal: 05/04/19 Time of Removal: 07:35 Assessment/Plan Plan Narrative: Post-op and medically doing well. I feel uncomfortable sending him to group home today as he has not urinated and we have been straight cathing him. Discussed with nursing that we will hold off on straight cath unless he has the urge to urinate and is still unable. Suspect his confusion is acute hospital dilirium. - Problems/Diagnosis (1) Displaced fracture of right femoral neck Problem: Acute (2) Postoperative anemia due to acute blood loss Problem: Acute
[2019-05-07] MEDS: ACETAMINOPHEN 500 MG TABLET PO PRN (03:12)
[2019-05-07] MEDS: SERTRALINE HCL 50 MG TABLET PO SCH (08:18)
[2019-05-07] MEDS: POTASSIUM CHLORIDE 10 MEQ TABLET.SA PO SCH (08:18)
[2019-05-07] MEDS: ASPIRIN 81 MG TAB.CHEW PO SCH (08:18)
--- NOTE | 2019-05-07 11:26 | PN ---
Subjective - Date and Time Seen Date: 05/07/19 Time: 09:30 Subjective Narrative: Sebastian reports doing well and ready to go home. He is from the [facility] and is set for discharge tomorrow. Nursing and his son reports more confusion. He has not been sleeping well at night. He has had bowel movements and passed urine. He reports pain is controlled. Objective - Vitals Vitals: Last Vital Signs Temp 36.8 C 05/07/19 06:35 Pulse 79 05/07/19 06:35 Resp 20 05/07/19 06:35 BP 136/66 05/07/19 06:35 Pulse Ox 94 05/07/19 06:35 - Exam Constitutional: Present: Alert, Oriented x3, Cooperative ENT Exam: Present: hearing grossly normal Respiratory: Present: lungs clear, normal breath sounds Cardiovascular/Chest: Present: regular rate, rhythm, no murmur Abdomen: Present: Normal bowel sounds, soft, nontender, nondistended Cauti Physician Documentation - Urinary Catheter Management Urethral (Egan) Urethral Indwelling: No Date of Insertion: 05/03/19 Time of Insertion: 08:35 Date of Removal: 05/04/19 Time of Removal: 07:35 Assessment/Plan Plan Narrative: Anticipate discharge to [facility] tomorrow. He is mostly alert and oriented. He occasionally has episodes of delirium but I suspect this is related to being in the hospital, surgery, and medications. There is no evidence of infection or other medical cause. Will give trazodone at bedtime tonight to help get his sleep cycle back. Will check CBC, CMP, and UCS to evaluate for other causes to delirium. - Problems/Diagnosis (1) Delirium Problem: Acute (2) Displaced fracture of right femoral neck Problem: Acute (3) Postoperative anemia due to acute blood loss Problem: Acute
[2019-05-07 11:40] LABS: Hematocrit 30.8 % (42.0-52.0); Hemoglobin 10.2 gm/dL (13.5-18.0); Mean Cell Volume 96.9 fl (78-100); Mean Corpuscular Hemoglobin 32.1 pg (27-31); Mean Corpuscular Hgb Conc 33.1 g/dl (32-36); Mean Platelet Volume 10.9 fl (8-11.3); Neutrophil # 6.8 K/mm3 (1.3-6.0); Neutrophil % 80.8 % (42-75.0); Platelet Count 140 K/mm3 (150-450); Red Blood Count 3.18 M/mm3 (4.7-6.0); Red Cell Distribution Width 14.6 % (11.5-14.0); White Blood Count 8.4 K/mm3 (4.0-10.5)
[2019-05-07] MEDS: ENOXAPARIN SODIUM 40 MG/0.4 ML SYRG SC SCH (11:45)
[2019-05-07 11:52] LABS: Albumin * 2.9 gm/dl (3.4-5.0); Anion Gap 18.6 mmol/L (6.8-13.8); BUN/Creatinine Ratio 55.9 (9.0-21.6); Bilirubin, Total 0.7 mg/dL (0.0-1.1); Ca. Corrected For Albumin 9.9 mg/dL (8.4-10.2); Calcium * 9.3 mg/dL (7.9-10.9); Carbon Dioxide 18.8 mmol/L (24-32.6); Potassium 4.4 mmol/L (3.4-4.6); Total Protein 6.9 gm/dL (6.2-8.2)
[2019-05-07 18:35] LABS: Urine Appearance Clear (CLEAR); Urine Bacteria None Seen; Urine Bilirubin Negative (NEGATIVE); Urine Blood Negative /ul (NEGATIVE); Urine Color Yellow; Urine Ketone Negative (NEGATIVE); Urine Nitrite Negative (NEGATIVE); Urine Protein Negative (NEGATIVE); Urine RBC None Seen /hpf (0-5); Urine Urobilinogen Normal (NORMAL); Urine WBC 0-5 /hpf (0-5)
[2019-05-07] MEDS: SENNOSIDES/DOCUSATE SODIUM 1 TAB TABLET PO SCH (20:29)
[2019-05-07] MEDS: TAMSULOSIN HCL 0.4 MG CAP.SR.24H PO SCH (20:29)
[2019-05-07] MEDS: ROSUVASTATIN CALCIUM 10 MG TABLET PO SCH (20:29)
[2019-05-07] MEDS ORDERED: traZODone HCL 50 MG TABLET PO SCH (21:00)
[2019-05-08] MEDS: ACETAMINOPHEN 500 MG TABLET PO PRN ×2 (00:59→07:48)
[2019-05-08] MEDS ORDERED: HYDROcodone/ACETAMINOPHEN 1 EACH TABLET PO PRN (07:45)
--- NOTE | 2019-05-08 08:39 | DS ---
(1) Displaced fracture of right femoral neck Problem: Acute (2) Mild congestive heart failure Problem: Acute (3) Coronary artery disease Problem: Acute Qualifiers: Coronary Disease-Associated Artery/Lesion type: [place] artery [place] vs. transplanted heart: [place] heart Associated angina: without angina Qualified Code(s): I25.10 - Atherosclerotic heart disease of [place] coronary artery without angina pectoris (4) Macrocytosis Problem: Chronic (5) Postoperative anemia due to acute blood loss Problem: Acute (6) Insomnia Problem: Acute Description of Stay: Sebastian sims is an 83-year-old male who fell at home and broke his right hip. This is a spiral fracture of the surgical neck. He was taken to surgery by Dr. Mullen and a prosthesis was placed in the right hip. Preoperatively on admission he had some mild congestive heart failure pulmonary vascular congestion, cardiomegaly, and edema. He was diuresed. He was also having apnea episodes on the morning of surgery lasting about 30 seconds but he was receiving IV morphine for pain. Postoperatively he had some hypotension and needs some fluid resuscitation. He also had oliguria and had difficulty urinating. He had a Egan catheter for a day after surgery and that was pulled the next morning. He required straight cathing twice since then only returning about 125 cc of urine. He finally voided on his own yesterday and has been stooling as well. He has not been sleeping well the last 2 nights he has had more confusion. He is not taking much pain medication at this time. He had one Percocet yesterday and Tylenol since then. He states his pain is fairly well controlled. He did walk at most 3-5 steps. This morning he was only able to stand and take one step to transfer and then maybe take 3 steps and transferring from chair into the bathroom to toilet. He is eating well. To help him sleep he has been tried on Benadryl, trazodone, amitriptyline. Benadryl seemed to work well night but has not worked since. Since he is not on much pain medication now I will put him on a benzodiazepine to help him sleep better at night. Procedures Performed: see notes below List Procedures: ORIF of right hip Results and Findings: Lab Pending Results 05/03/19 00:20: WBC 10.3, RBC 3.64 L, Hgb 11.7 L, Hct 35.9 L, MCV 98.6, MCH 32.1 H, MCHC 32.6, RDW 14.8 H, Plt Count 145 L, MPV 11.4 H, Immature Gran % (Auto) 0.40, Immature Gran # (Auto) 0.04 H, Neutrophils % 84.2 H, Lymphocytes % 7.8 L, Monocytes % 6.6, Eosinophils % 0.7, Basophils % 0.3, Nucleated RBC % 0.0, Neutrophils # 8.7 H, Lymphocytes # 0.80 L, Monocytes # 0.7, Eosinophils # 0.1, Absolute Basophils 0.0 05/03/19 00:20: Sodium 140, Plasma Sodium 141, Potassium 5.4 H, Chloride 105, Carbon Dioxide 24.5, Anion Gap 15.9 H, BUN 44 H, Creatinine 1.40, Est GFR (Non- Af Amer) 51 L, BUN/Creatinine Ratio 31.4 H, Random Glucose 144 H, Calcium 8.8, Calcium Adj for Albumin 9.0, Total Bilirubin 0.5, AST 26, ALT 26, Alkaline Phosphatase 100, Total Protein 7.5, Albumin 3.4 05/03/19 08:38: Urine Color Yellow, Urine Appearance Slightly cloudy, Urine pH 5.0, Ur Specific [place] 1.020, Urine Protein Negative, Urine Glucose (UA) Negative, Urine Ketones Negative, Urine Blood Negative, Urine Nitrate Negative, Urine Bilirubin Negative, Urine Urobilinogen Normal, Ur Leukocyte Esterase Negative, Urine RBC None seen, Urine WBC 0-5, Ur Epithelial Cells None seen, Amorphous Sediment Few - 1+, Urine Bacteria None seen, Urine Culture Comments No culture indicated 05/03/19 09:04: WBC 9.6, RBC 3.83 L, Hgb 12.1 L, Hct 38.6 L, MCV 100.8 H, MCH 31.6 H, MCHC 31.3 L, RDW 15.1 H, Plt Count 157, MPV 11.4 H, Immature Gran % (Auto) 0.30, Immature Gran # (Auto) 0.03, Neutrophils % 67.9, Lymphocytes % 18.9 L, Monocytes % 9.9 H, Eosinophils % 2.3, Basophils % 0.7, Nucleated RBC % 0.0, Neutrophils # 6.5 H, Lymphocytes # 1.82, Monocytes # 1.0, Eosinophils # 0.2, Absolute Basophils 0.1 05/03/19 09:04: Sodium 140, Plasma Sodium 141, Potassium 5.4 H, Chloride 106, Carbon Dioxide 22.7 L, Anion Gap 16.7 H, BUN 48 H, Creatinine 1.49 H, Est GFR (Non-Af Amer) 48 L, BUN/Creatinine Ratio 32.2 H, Random Glucose 162 H, Calcium 9.1, Calcium Adj for Albumin 9.3, Total Bilirubin 0.5, AST 22, ALT 25, Alkaline Phosphatase 98, Total Protein 7.5, Albumin 3.4 05/04/19 05:56: WBC 8.0, RBC 3.18 L, Hgb 10.0 L, Hct 32.0 L, MCV 100.6 H, MCH 31.4 H, MCHC 31.3 L, RDW 14.7 H, Plt Count 103 L, MPV 11.4 H 05/04/19 05:56: Sodium 137, Plasma Sodium 138, Potassium 4.2 D, Chloride 105, Carbon Dioxide 21.4 L, Anion Gap 14.8 H, BUN 43 H, Creatinine 1.37, Est GFR (Non-Af Amer) 52 L, BUN/Creatinine Ratio 31.4 H, Random Glucose 160 H, Calcium 8.2 05/05/19 05:20: WBC 9.0, RBC 3.16 L, Hgb 10.1 L, Hct 31.4 L, MCV 99.4, MCH 32.0 H, MCHC 32.2, RDW 14.4 H, Plt Count 101 L, MPV 11.4 H, Immature Gran % (Auto) 0.30, Immature Gran # (Auto) 0.03, Neutrophils % 78.5 H, Lymphocytes % 9.2 L, Monocytes % 10.9 H, Eosinophils % 0.9, Basophils % 0.2, Nucleated RBC % 0.0, Neutrophils # 7.0 H, Lymphocytes # 0.83 L, Monocytes # 1.0, Eosinophils # 0.1, Absolute Basophils 0.0 05/05/19 05:20: Sodium 134, Plasma Sodium 135, Potassium 4.3, Chloride 102, Carbon Dioxide 23.2 L, Anion Gap 13.1, BUN 56 H, Creatinine 1.41 H, Est GFR (Non-Af Amer) 51 L, BUN/Creatinine Ratio 39.7 H, Random Glucose 145 H, Calcium 8.9, Calcium Adj for Albumin 9.5, Total Bilirubin 0.7, AST 32, ALT 17 L, Alkaline Phosphatase 82, Total Protein 6.6, Albumin 2.8 L, Vitamin B12 476, Folate 7.1 L 05/07/19 11:33: WBC 8.4, RBC 3.18 L, Hgb 10.2 L, Hct 30.8 L, MCV 96.9, MCH 32.1 H, MCHC 33.1, RDW 14.6 H, Plt Count 140 L, MPV 10.9, Immature Gran % (Auto) 0.60 H, Immature Gran # (Auto) 0.05 H, Neutrophils % 80.8 H, Lymphocytes % 8.7 L, Monocytes % 9.6 H, Eosinophils % 0.2, Basophils % 0.1, Nucleated RBC % 0.0, Neutrophils # 6.8 H, Lymphocytes # 0.73 L, Monocytes # 0.8, Eosinophils # 0.0, Absolute Basophils 0.0 05/07/19 11:33: Sodium 138, Plasma Sodium 139, Potassium 4.4, Chloride 105, Carbon Dioxide 18.8 L, Anion Gap 18.6 H, BUN 62 H, Creatinine 1.11, Est GFR (Non-Af Amer) 67 D, BUN/Creatinine Ratio 55.9 H, Random Glucose 152 H, Calcium 9.3, Calcium Adj for Albumin 9.9, Total Bilirubin 0.7, AST 40, ALT 25, Alkaline Phosphatase 90, Total Protein 6.9, Albumin 2.9 L 05/07/19 18:30: Urine Color Yellow, Urine Appearance Clear, Urine pH 6.0, Ur Specific [place] 1.010, Urine Protein Negative, Urine Glucose (UA) Negative, Urine Ketones Negative, Urine Blood Negative, Urine Nitrate Negative, Urine Bilirubin Negative, Urine Urobilinogen Normal, Ur Leukocyte Esterase Negative, Urine RBC None seen, Urine WBC 0-5, Ur Epithelial Cells 0-5, Urine Bacteria None seen, Urine Culture Comments No culture indicated Discharge Location: [facility] Disposition: [facility] Condition: Fair Face to Face Encounter completed per [facility] Guidelines: No Level of Care: SNF - Feels a full weightbearing Discharge Activity: Activity as tolerated, Weight bearing - Getting regular diet Discharge Diet: General/regular food - Regular Long-Term Therapy: Physicial Therapy, Occupation Therapy Problem Oriented Discharge Instructions to Patient/Family: Total Hip Replacement, [id number], Hip Fracture Additional Patient Instructions (free text): [facility] SNF for PT and OT to Evaluate and treat. Follow up [facility] office appt. WednesdayMay 23 at 1:30pm. Continue with physical and occupational therapy weight bearing as tolerated. Anterior hip precautions. Continue with anticoagulation -he will need 10 days of Lovenox followed by a regular strength aspirin daily. Pain control with goal to rely on oral medications. Continue bowel regimen. Will need 6 weeks with walker or assistive device to protect joint while ambulating during the recovery process. He is to keep his wound clean and dry. Cover with dry gauze and tape. Change this every 2-3 days as needed. Use OPAL hose on the operative side. Prescriptions (Any new or edited meds): Tamsulosin HCl [Flomax] 0.4 mg PO DAILY@1800 #30 cap.sr.24h Enoxaparin Sodium [Lovenox] 40 mg SC Q24H #14 disp.syrin Mag Hydrox/Aluminum Hyd/Simeth [Maalox Plus Suspension] 30 ml PO Q6H PRN #240 udc PRN Reason: Indigestion Magnesium Hydroxide [Milk Of Magnesia] 30 ml PO DAILY PRN #120 udc PRN Reason: Constipation HYDROcodone/ACETAMINOPHEN [[place] 5-325] 1 ea PO Q2H PRN #30 tab PRN Reason: Pain Sennosides/Docusate Sodium [Senokot-S] 2 tab PO HS #60 tablet Temazepam 15 mg PO HS #30 capsule Acetaminophen [Tylenol] 1,000 mg PO Q6H PRN #100 tablet PRN Reason: Mild Pain (Pain Scale 1-3) Complete Home Medications List: Complete Home Medication List: Aspirin 81 mg PO DAILY 05/02/19 Atorvastatin Calcium 20 mg PO DAILY 05/02/19 Clopidogrel Bisulfate [Plavix] 75 mg PO DAILY 05/02/19 Furosemide [Lasix] 40 mg PO DAILY 05/02/19 Lisinopril [Prinivil] 10 mg PO DAILY 05/02/19 Omeprazole [Prilosec] 20 mg PO DAILY 05/02/19 Potassium Chloride [Klor-Con M10] 10 meq PO DAILY 05/02/19 Sertraline HCl [Zoloft] 50 mg PO DAILY 05/02/19 metFORMIN HCL [Metformin HCl] 500 mg PO BID 05/02/19 Acetaminophen [Tylenol] 1,000 mg PO Q6H PRN #100 tablet 05/08/19 Enoxaparin Sodium [Lovenox] 40 mg SC Q24H #14 disp.syrin 05/08/19 HYDROcodone/ACETAMINOPHEN [[place] 5-325] 1 ea PO Q2H PRN #30 tab 05/08/19 Mag Hydrox/Aluminum Hyd/Simeth [Maalox Plus Suspension] 30 ml PO Q6H PRN #240 udc 05/08/19 Magnesium Hydroxide [Milk Of Magnesia] 30 ml PO DAILY PRN #120 udc 05/08/19 Sennosides/Docusate Sodium [Senokot-S] 2 tab PO HS #60 tablet 05/08/19 Tamsulosin HCl [Flomax] 0.4 mg PO DAILY@1800 #30 cap.sr.24h 05/08/19 Temazepam 15 mg PO HS #30 capsule 05/08/19
[2019-05-08] MEDS: POTASSIUM CHLORIDE 10 MEQ TABLET.SA PO SCH (09:11)
[2019-05-08] MEDS: ASPIRIN 81 MG TAB.CHEW PO SCH (09:11)
[2019-05-08] MEDS: SERTRALINE HCL 50 MG TABLET PO SCH (09:11)
[2019-05-08 10:48] VITALS: BP 127/55
== END 2019-05-08 09:30 | DRG 470 ==
LOC: ER 20:40 → MS 05-03 00:29
PROVIDERS: ADMIT Family Medicine; ATTEND Family Medicine
DX: F05 Delirium due to known physiological condition; S72.091A Other fracture of head and neck of right femur, initial encounter for closed fracture; G47.00 Insomnia, unspecified; I11.0 Hypertensive heart disease with heart failure; N99.0 Postprocedural (acute) (chronic) kidney failure; I10 Essential (primary) hypertension; E11.9 Type 2 diabetes mellitus without complications; Z95.5 Presence of coronary angioplasty implant and graft; I50.9 Heart failure, unspecified; D75.89 Other specified diseases of blood and blood-forming organs; E78.5 Hyperlipidemia, unspecified; D62 Acute posthemorrhagic anemia; I25.10 Atherosclerotic heart disease of native coronary artery without angina pectoris; W01.0XXA Fall on same level from slipping, tripping and stumbling without subsequent striking against object, initial encounter
CPT/HCPCS: 36415; 71010; 71045; 73502; 80048; 80053; 81001; 82607; 82746; 85025; 85027; 93005; 96374; 96375; 96376; 97110; 97116; 97162; 97165; 97530; 99285; J2405